=== PATIENT | female | born 1990 | race Caucasian/White ===

== ENCOUNTER 2017-02-28 09:26 | Inpatient (IN) | payer MEDICAID ==
[~2017-02-28] VITALS: Ht 157.5 cm; Wt 96.2 kg
[2017-02-28 10:00] VITALS: BP 133/77
[2017-02-28] MEDS ORDERED: IRON65 M2 PO (10:47)
[2017-02-28] MEDS ORDERED: PRENATAL 191 TAB PO (10:47)
[2017-02-28] MEDS ORDERED: OXYTOCIN 20 UNITS/LR PREMIX 1,000 ML IV SCH (11:38)
[2017-02-28] MEDS ORDERED: METHYLERGONOVINE 0.2 MG/ML AMP IM SCH (11:40)
[2017-02-28] MEDS ORDERED: MISOPROSTOL 25 MCG TAB VG PRN (11:40)
[2017-02-28] MEDS ORDERED: CARBOPROST 250 MCG/ML AMP IM PRN (11:40)
[2017-02-28] MEDS ORDERED: IBUPROFEN 800 MG TAB PO PRN (11:40)
[2017-02-28] MEDS ORDERED: NALBUPHINE 10 MG/ML AMP IVP PRN (11:40)
[2017-02-28] MEDS ORDERED: PROMETHAZINE 25 MG/ML VIAL IVP PRN (11:40)
[2017-02-28] MEDS ORDERED: OXYTOCIN 10 UNITS/ML VIAL IM SCH (12:00)
[2017-02-28] MEDS: LACTATED RINGERS 1,000 ML IV SCH ×2 (13:26→16:55)
[2017-02-28] MEDS ORDERED: MISOPROSTOL 25 MCG TAB ONE ×2 (13:27→21:06)
[2017-02-28] MEDS ORDERED: TERBUTALINE 1 MG/ML VIAL SUBQ SCH (14:45)
[2017-02-28] MEDS ORDERED: TERBUTALINE 1 MG/ML VIAL SUBQ ONE (14:46)
[2017-03-01] MEDS ORDERED: NALBUPHINE HYDROCHLORIDE 10 MG/ML VIAL ONE (01:39)
[2017-03-01] MEDS ORDERED: PROMETHAZINE 25 MG/ML VIAL ONE (01:39)
[2017-03-01] MEDS ORDERED: TRIMETHOBENZAMIDE 200 MG/2 ML SYR IM PRN (04:45)
[2017-03-01] MEDS ORDERED: IBUPROFEN 800 MG TAB PO PRN (04:45)
[2017-03-01] MEDS ORDERED: TEMAZEPAM 15 MG CAP PO PRN (04:45)
[2017-03-01] MEDS ORDERED: METHYLERGONOVINE 0.2 MG/ML AMP IM PRN (04:45)
[2017-03-01] MEDS ORDERED: MEASLES, MUMPS, AND RUBELLA 1 VIAL SQVAC PRN (04:45)
[2017-03-01] MEDS ORDERED: CITRIC ACID/SODIUM CITRATE 30 ML UDC PO ONE (04:55)
[2017-03-01] MEDS ORDERED: CITRIC ACID/SODIUM CITRATE 30 ML UDC ONE (05:10)
[2017-03-01] MEDS ORDERED: ceFAZolin 1,000 MG VIAL ONE (05:10)
[2017-03-01] MEDS ORDERED: ONDANSETRON 4 MG/2 ML VIAL IVP ONE ×2 (05:45→08:35)
[2017-03-01] MEDS ORDERED: MORPHINE PRES FREE 10 MG/10 ML AMP IV ONE (06:00)
[2017-03-01] MEDS ORDERED: MIDAZOLAM 2 MG/2 ML VIAL ONE (06:00)
[2017-03-01] MEDS ORDERED: OXYTOCIN 10 UNITS/ML VIAL ONE ×2 (06:05→07:18)
[2017-03-01] MEDS ORDERED: OXYTOCIN 20 UNITS/LR PREMIX 1,000 ML IV SCH (06:27)
[2017-03-01] MEDS ORDERED: NALBUPHINE 10 MG/ML AMP IVP PRN (06:30)
[2017-03-01] MEDS ORDERED: ONDANSETRON 4 MG/2 ML VIAL IVP PRN ×2 (06:30)
[2017-03-01] MEDS ORDERED: NALOXONE 0.4 MG/ML VIAL IVP PRN ×3 (06:30)
[2017-03-01] MEDS ORDERED: diphenhydrAMINE 50 MG/ML VIAL IVP PRN ×2 (06:30)
[2017-03-01] MEDS ORDERED: HYDROmorphone 1 MG/ML AMP IVP PRN (06:30)
[2017-03-01] MEDS ORDERED: MEPERIDINE 25 MG/ML SYR IVP PRN (06:30)
[2017-03-01] MEDS: OXYTOCIN 20 UNITS/LR PREMIX 1,000 ML IV SCH ×2 (07:01→16:06)
[2017-03-01] MEDS ORDERED: OXYTOCIN 20 UNITS/LR PREMIX 1,000 ML IV ONE (07:18)
[2017-03-01] MEDS ORDERED: diphenhydrAMINE 50 MG/ML VIAL ONE (07:39)
[2017-03-01] MEDS ORDERED: SEVOFLURANE 250 ML BTL INH ONE (08:35)
[2017-03-01] MEDS ORDERED: SUCCINYLCHOLINE CHLORIDE 200 MG/10 ML VIAL IV ONE (08:35)
[2017-03-01] MEDS ORDERED: ROCURONIUM 50 MG/5 ML VIAL IV ONE (08:35)
[2017-03-01] MEDS ORDERED: DEXAMETHASONE 4 MG/ML VIAL IVP ONE (08:35)
[2017-03-01] MEDS ORDERED: PROPOFOL 200 MG/20 ML VIAL IV ONE (08:35)
--- NOTE | 2017-03-01 09:43 | NUR ---
PATIENT HAS BEEN SCREENED AND CATEGORIZED LOW RISK. PATIENT WILL BE SEEN WITHIN 7 DAYS OF ADMISSION. 03/07/[address]
[2017-03-01] MEDS: KETOROLAC 30 MG/ML VIAL IM/IVP SCH ×2 (12:00→18:53)
[2017-03-01] MEDS: DOCUSATE SOD/SENNA 50/8.6 MG 1 TAB PO SCH (21:00)
[2017-03-02] MEDS: OXYTOCIN 20 UNITS/LR PREMIX 1,000 ML IV SCH (00:20)
[2017-03-02] MEDS: KETOROLAC 30 MG/ML VIAL IM/IVP SCH (00:22)
[2017-03-02] MEDS: oxyCODONE/APAP 5/325 MG 1 TAB TAB PO PRN (09:09)
[2017-03-02] MEDS: SIMETHICONE 80 MG TAB.CHEW PO PRN ×2 (09:10→15:07)
[2017-03-02] MEDS: HYDROcodone/APAP 5/325 MG 1 TAB TAB PO PRN ×2 (15:07→20:06)
[2017-03-02] MEDS: DOCUSATE SOD/SENNA 50/8.6 MG 1 TAB PO SCH (21:09)
[2017-03-03] MEDS: HYDROcodone/APAP 5/325 MG 1 TAB TAB PO PRN (03:06)
[2017-03-03] MEDS: SIMETHICONE 80 MG TAB.CHEW PO PRN (09:39)
[2017-03-03] MEDS: oxyCODONE/APAP 5/325 MG 1 TAB TAB PO PRN (09:39)
== END 2017-03-03 11:35 | disposition home or self-care (01) | DRG 540 ==
LOC: OBSVTOIN 09:26 → MLD 09:26 → MFCC 03-01 07:40
PROVIDERS: ADMIT Obstetrics & Gynecology; ATTEND Obstetrics & Gynecology
PROC: 10D00Z1 Extraction of Products of Conception, Low, Open Approach (ICD-10-PCS; principal; 2017-03-01 06:00)
DX: O48.0 Post-term pregnancy (principal); E66.9 Obesity, unspecified; O99.214 Obesity complicating childbirth; O61.9 Failed induction of labor, unspecified; Z68.39 Body mass index [BMI] 39.0-39.9, adult; Z3A.41 41 weeks gestation of pregnancy; Z37.0 Single live birth; Z28.21 Immunization not carried out because of patient refusal

== ENCOUNTER 2024-03-05 16:29 | Emergency (ER) | payer MEDICAID, OTHER ==
[~2024-03-05] VITALS: Ht 152.4 cm; Wt 90.7 kg
[2024-03-05 16:37] VITALS: BP 128/85; PULSE 112; RESP 17; TEMP 98; O2SAT 100
[2024-03-05] MEDS ORDERED: IBUP-1842 PO (17:01)
[2024-03-05] MEDS ORDERED: ACET-10509 PO (17:01)
[2024-03-05] MEDS: ACETAMINOPHEN EXTRA STRENGTH 500 MG TAB PO ONE (17:20)
[2024-03-05 18:10] LABS: FLU A ANTIGEN negative (NEGATIVE)
[2024-03-05 18:11] LABS: FLU B ANTIGEN POSITIVE (NEGATIVE)
== END 2024-03-05 17:52 | disposition home or self-care (01) ==
LOC: MED 16:29
DX: J06.9 Acute upper respiratory infection, unspecified (principal); Z20.822 Contact with and (suspected) exposure to COVID-19; Z79.899 Other long term (current) drug therapy
CPT/HCPCS: 81002; 81025; 99283